=== PATIENT | female | born 2000 ===

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

== ENCOUNTER 2021-02-11 16:01 | Emergency (ER) | payer OTHER ==
[~2021-02-11] VITALS: Ht 160 cm; Wt 61.7 kg
[2021-02-11] MEDS ORDERED: IBUPROFEN 600 MG TABLET. PO ONE (16:30)
--- NOTE | 2021-02-11 17:22 | RAD ---
EXAMINATION: Right knee radiograph. VIEWS: 4 COMPARISON: None INDICATION:20 years, Female, fall. FINDINGS: No acute fracture, dislocation or subluxation. There is a small osseous structure seen along the medi al cortex of the proximal fibula projected inferiorly away from the knee joint measures 1.7 cm in bessie gth, likely representing osteochondroma. No soft tissue swelling or joint effusion. IMPRESSION: No acute osseous process. Electronically signed by: Lesley Del Valle MD (02/11/2021 5:19 PM) [facility]
[2021-02-11] MEDS ORDERED: HYDR-2155 PO (17:57)
--- NOTE | 2021-02-11 17:58 | PHYS DOC ---
Past History Past Medical History: No Pertinent History Additional Past Medical Histor: UNABLE TO ASSESS (CELESTE SON APRN) Past Surgical History: No Surgical History Additional Past Surgical Histo: UNABLE TO ASSESS (CELESTE SON APRN) Alcohol Use: None Drug Use: Other (CELESTE SON APRN) General Adult EDM: Chief Complaint: KNEE INJURY HPI: HPI: Patient is a 20-year-old female who presents with right knee pain after falling while running. Patient states "I heard a pop in my knee went backwards, I fell to the ground". Patient states she is unable to bear weight. No swelling noted. Pedal pulses intact. Sensation intact. Rating pain 5/10 denies medical history. (CELESTE SON APRN) Review of Systems: Review of Systems: ROS At least 10 ROS systems have been reviewed and are negative except as documented in the HPI. General: Negative except as outlined in HPI above. Skin: Negative except as outlined in HPI above. HEENT: Negative except as outlined in HPI above. Neck: Negative except as outlined in HPI above. Respiratory: Negative except as outlined in HPI above.. Cardiovascular: Negative except as outlined in HPI above. Abdomen: Negative except as outlined in HPI above. : Negative except as outlined in HPI above. Back/MSK: Negative except as outlined in HPI above. Neuro: Negative except as outlined in HPI above. Psych: Negative except as outlined in HPI above. (CELESTE SON APRN) Current Medications: Current Meds: Current Medications Medications (Trade) Dose Ordered Sig/Kennedy Start Time Stop Time Status Last Admin Dose Admin Ibuprofen (Motrin) 600 mg 1X ONCE 02/11/21 16:30 02/11/21 16:31 DC 02/11/21 16:54 600 MG (CELESTE SON APRN) Allergies: Allergies: Allergies Coded Allergies Type Severity Reaction Last Updated Verified No Known Drug Allergies 03/05/20 No (CELESTE SON APRN) Physical Exam: PE: Constitutional: Well developed, well nourished, no acute distress, non-toxic appearance. [] HENT: Normocephalic, atraumatic, bilateral external ears normal, oropharynx moist, no oral exudates, nose normal. [] Eyes: PERRLA, EOMI, conjunctiva normal, no discharge. [] Neck: Normal range of motion, no tenderness, supple, no stridor. [] Cardiovascular:Heart rate regular rhythm, no murmur [] Lungs & Thorax: Bilateral breath sounds clear to auscultation [] Abdomen: Bowel sounds normal, soft, no tenderness, no masses, no pulsatile masses. [] Skin: Warm, dry, no erythema, no rash. [] Back: No tenderness, no CVA tenderness. [] Extremities: Right knee tenderness, pain when she bears weight, ROM intact, no edema. [] Neurologic: Alert and oriented X 3, normal motor function, normal sensory function, no focal deficits noted. [] Psychologic: Affect normal, judgement normal, mood normal. [] (CELESTE SON APRN) Current Patient Data: Vital Signs: Vital Signs Date Time Temp Pulse Resp B/P (MAP) Pulse Ox O2 Delivery O2 Flow Rate FiO2 02/11/21 16:20 97.7 65 20 107/63 (78) 98 Room Air (CELESTE SON APRN) EKG: EKG: [] (CELESTE SON APRN) Radiology/Procedures: Radiology/Procedures: [] (CELESTE SON APRN) Heart Score: C/O Chest Pain: No Risk Factors: Risk Factors: DM, Current or recent (<one month) smoker, HTN, HLP, family history of CAD, obesity. Risk Scores: Score 0 - 3: 2.5% MACE over next 6 weeks - Discharge Home Score 4 - 6: 20.3% MACE over next 6 weeks - Admit for Clinical Observation Score 7 - 10: 72.7% MACE over next 6 weeks - Early Invasive Strategies (CELESTE SON APRN) Course & Med Decision Making: Course & Med Decision Making Pertinent Labs and Imaging studies reviewed. (See chart for details) [] I do not feel presents with right knee pain after falling while running. Patient heard a pop and reports knee went backwards. Patient is unable to bear weight. No swelling seen. Pedal pulses intact. Tunde wrap placed and crutches given. Ducted patient to follow-up with PCP on Saturday. Patient may need further imaging. Hydrocodone sent to patient's pharmacy. Profen and rice instructions given. (CELESTE SON APRN) Course & Med Decision Making I was the Attending physician on the above date of service of this patient. This patient was evaluated, examined, treated, and dispositioned from the emergency department by the mid-level practitioner. Although I was working at the time , no assistance was requested. Electronically signed, Vince Khoury DO (VINCE KHOURY DO) Terri Disclaimer: Terri Disclaimer: This electronic medical record was generated, in whole or in part, using a voice recognition dictation system. (HUY[employer]LE[employer]SEHOLD WORKER) Departure Departure: Impression: Primary Impression: Knee hyperextension injury Qualified Codes: S89.81XA - Other specified injuries of right lower leg, initial encounter Disposition: HOME / SELF CARE / HOMELESS Condition: STABLE Referrals: PCP,UNKNOWN (PCP) Patient Instructions: Knee Pain, [id number] Additional Instructions: You are seen in the emergency room after injuring your knee. X-ray was negative for fracture. I am sending you hydrocodone to your pharmacy to help with pain. Rest, use ice, wear knee brace and elevate to help with swelling and pain. You can also use ibuprofen for breakthrough pain. Call your PCP on Saturday and make a follow-up appointment please for further imaging. EMERGENCY DEPARTMENT GENERAL DISCHARGE INSTRUCTIONS Thank you for coming to [facility] (ED) today and trusting us with you care. We trust that you had a positivie experience in our Emergency Department. If you wish to speak to the department management, you may call the director at [phone]. YOUR FOLLOW UP INSTRUCTIONS ARE FOLLOWS: 1. Do you have a private Doctor? If you do not have a private doctor, please ask for a resource list of physicians or clinics that may be able to assist you with follow up care. 2. The Emergency Physician has interpreted your x-rays. The X-Ray specialist will also review them. If there is a change in the findings, you will be notified in 48 hours when at all possible. 3. A lab test or culture has been done, your results will be reviewed and you will be notified if you need a change in treatment. ADDITIONAL INSTRUCTIONS AND INFORMATION: 1. Your care today has been supervised by a physician who is specially trained in emergency care. Many problems require more than one evaluation for a complete diagnosis and treatment. We recommend that you schedule your follow up appointment as recommended to ensure complete treatment of you illness or injury. If you are unable to obtain follow up care and continue to have a problem, or if your condition worsens, we recommend that you return to the ED. 2. We are not able to safely determine your condition over the phone nor are we able to give sound medical advice over the phone. For these safety reasons, if you call for medical advice we will ask you to come to the ED for further evaluation. 3. If you have any questions regarding these discharge instructions please call the ED at [phone]. SAFETY INFORMATION: In the interest of safety, wellness, and injury prevention; we encourage you to wear your sealbelt, if you smoke; quite smoking, and we encourage family to use a protective helmet for bicycling and other sporting events that present an increased risk for head injury. IF YOUR SYMPTOMS WORSEN OR NEW SYMPTOMS DEVELOP, OR YOU HAVE CONCERNS ABOUT YOUR CONDITION; OR IF YOUR CONDITION WORSENS WHILE YOU ARE WAITING FOR YOUR FOLLOW UP APPOINTMENT; EITHER CONTACT YOUR PRIMARY CARE DOCTOR, THE PHYSICIAN WHOSE NAME AND NUMBER YOU WERE GIVEN, OR RETURN TO THE ED IMMEDIATELY. Scripts Hydrocodone Bit/Acetaminophen (HYDROCODONE-APAP 5-325 ) 1 Each Tablet 1-2 TAB PO PRN Q6HRS PRN for PAIN for 3 Days, #12 TAB 0 Refills Prov: CELESTE SON APRN 02/11/21 CELESTE SON APRN Feb 11, 2021 17:58 VINCE KHOURY DO Feb 12, 2021 20:05
[2021-02-11 18:16] VITALS: BP 106/66
== END 2021-02-11 18:10 | disposition home or self-care (01) ==
LOC: ER 16:01
DX: S89.81XA Other specified injuries of right lower leg, initial encounter (principal); W18.39XA Other fall on same level, initial encounter; Y93.02 Activity, running; Y92.89 Other specified places as the place of occurrence of the external cause; Y99.8 Other external cause status
CPT/HCPCS: 73564; 99283